=== PATIENT | female | born 1955 | race Caucasian/White ===

== ENCOUNTER 2017-07-30 14:10 | Emergency (ER) | payer OTHER, SELFPAY ==
[2017-07-30 14:12] VITALS: BP 120/70; PULSE 54; RESP 16; TEMP 36.4; O2SAT 96; BMI 21.2
--- NOTE | 2017-07-30 15:02 | ED.DCSUM_ITS ---
- ER Visit Summary Date of Service: 07/30/17 Chief Complaint: Red blood per rectum History of Present Illness: The patient is a 62 F history of IBS prior kidney stones and internal hemorrhoids. He denies being on any blood thinners. Today she had 8 or so small tablespoons of blood. She denies any clots. States it was bright red. Denies any straining at stools. Colonoscopy 1-2 years ago which was negative. Physical Examination: Well-appearing female. Vital signs are stable afebrile. No acute distress. HEENT exam unremarkable. Neck is nontender no lymphadenopathy abdomen is soft and nontender. Normal bowel sounds. No peritoneal signs. Heart regular rate and rhythm no murmurs. Lungs are clear to auscultation bilaterally. Moving all 4 extremities. No edema. Neurologically awake alert without focal deficits. Test Results: CBC normal with a H&H of 13 and 38. No old labs available for comparison. Orthostatic vital signs normal. Emergency Department Course and Treatment: Mild rectal bleeding which may be from internal hemorrhoids. CBC will be obtained and orthostatic vital signs. Treatment Plan: Repeat exam patient is doing well. The nurse present in the room external anal exam showed no hemorrhoids. Rectal exam was nontender without masses. Her stool is dark however she is taking Pepto-Bismol. Disposition: discharge Impression: Rectal bleeding of uncertain etiology This note was generated with [employer] dictation software. It may contain incorrect words, spelling, and punctuation that were not noted in review of the chart prior to signing ED Disposition - Plan for ED Patient: Chief Complaint: GI Bleed Referrals: Jose Baker MD [Primary Care Provider] -
[2017-07-30 15:10] VITALS: BP 128/70; BP 130/76; PULSE 54; PULSE 62
[2017-07-30 15:12] VITALS: BP 128/70; PULSE 55
[2017-07-30 15:18] LABS: Hematocrit 38.7 % (37-47); Hemoglobin 13.3 g/dl (12.0-15.0); Mean Corp Hgb Conc 34.4 g/gl (32-36); Mean Corpuscular Hgb 31.7 pg (27.0-32.0); Mean Corpuscular Volume 92.4 fL (81-99); Mean Platelet Vol. 10.6 fl (6.2-12.0); Platelet Count 192 K/mm3 (150-450); RBC Distribution Width SD 43.3 fl (35.1-43.9); Red Blood Count 4.19 M/mm3 (4.2-5.4); White Blood Count 5.8 K/mm3 (4.4-11.0)
[2017-07-30 15:24] LABS: Scan Indicated on CBC? Y/N NO
[2017-07-30 16:16] VITALS: BP 117/84; PULSE 55; RESP 15; O2SAT 97
--- NOTE | 2017-07-30 16:18 | ED.DEP ---
ED Disposition - Plan for ED Patient: Disposition: Home or Assisted Living Chief Complaint: GI Bleed Instructions: ED Hematochezia Stable, ED Hemorrhoids Referrals: Jose Baker MD [Primary Care Provider] - As Needed Additional Instructions: Most likely this is from internal hemorrhoids. Follow-up your primary care physician they may want to schedule for a colonoscopy. Return if bleeding is a lot worse such as clots or feel lightheaded or dizzy.
[2017-07-30 16:22] VITALS: BP 117/63; PULSE 56; RESP 17; O2SAT 98
== END 2017-07-30 16:24 | disposition home or self-care (01) ==
PROVIDERS: Emergency Provider Emergency Medicine; Family Provider Family Medicine; PCP Family Medicine
DX: K62.5 Hemorrhage of anus and rectum (principal); K58.9 Irritable bowel syndrome, unspecified; Z87.442 Personal history of urinary calculi; Z87.19 Personal history of other diseases of the digestive system
CPT/HCPCS: 85027; 99284; A4216

== ENCOUNTER → 2019-01-24 10:01 | Outpatient (CLI) | payer OTHER, SELFPAY ==
[2019-01-24 09:56] VITALS: BMI 21.2
--- NOTE | 2019-01-24 10:04 | RAD_ITS ---
STUDY: X-RAY - LEFT WRIST REASON FOR EXAM: Female, 63 years old. Follow-up fracture TECHNIQUE: 3 view(s) of the wrist were obtained. COMPARISON: No previous images or reports are available. FINDINGS: Osseous detail is partially obscured by overlying cast material. There appears to be a nondisplaced healing fracture of the distal radial metaphysis. There is degenerative arthrosis of the radiocarpal articulation. Normal distal radioulnar articulation. Normal carpal bones. Normal carpal articulations. There are degenerative changes of the first metacarpal greater multangular joint. Normal second through fifth carpometacarpal articulations. Normal visualized metacarpal bones. The soft tissue structures are unremarkable. RAD/Wrist min 3 Views IMPRESSION: Osseous detail is partially obscured by cast material. There appears to be a healing nondisplaced transverse fracture of the distal radial metaphysis. There are degenerative changes of the first metacarpal greater multangular joint. Electronically Signed: Vinicio Correia MD at 23:52 EDT , Service support ,
== END ==
PROVIDERS: Family Provider Family Medicine; PCP Family Medicine; Referring Provider Orthopaedic Surgery; Visit Provider Orthopaedic Surgery
DX: S62.102A Fracture of unspecified carpal bone, left wrist, initial encounter for closed fracture (principal)
CPT/HCPCS: 73110

== ENCOUNTER → 2019-01-27 09:36 | Outpatient (CLI) | payer OTHER, SELFPAY ==
[2019-01-24 09:56] VITALS: BMI 21.2
[2019-01-27 11:02] LABS: Amphetamine Urine VISTA NEGATIVE (<1000 ng/mL); Barbiturate Urine VISTA NEGATIVE (< 200 ng/mL); Benzodiazepine Urine VISTA NEGATIVE (< 200 ng/mL); Cocaine Urine VISTA NEGATIVE (< 300 ng/mL); Ecstacy Urine VISTA NEGATIVE (< 500 ng/mL); Methadone Urine VISTA NEGATIVE (< 300 ng/mL); PCP Urine VISTA NEGATIVE (< 25 ng/mL); THC Urine VISTA NEGATIVE (< 50 ng/mL); Vista UDS pH Range 7
== END ==
PROVIDERS: Family Provider Family Medicine; PCP Family Medicine; Referring Provider Anesthesiology Pain Medicine; Visit Provider Anesthesiology Pain Medicine
DX: F11.20 Opioid dependence, uncomplicated (principal)
CPT/HCPCS: 80307

== ENCOUNTER → 2019-01-31 10:01 | Outpatient (CLI) | payer OTHER, SELFPAY ==
[2019-01-31 08:12] VITALS: BMI 21.2
--- NOTE | 2019-01-31 10:03 | RAD_ITS ---
STUDY: X-RAY - LEFT WRIST REASON FOR EXAM: Female, 63 years old. Follow-up wrist fracture TECHNIQUE: 3 view(s) of the wrist were obtained. COMPARISON: None. FINDINGS: Imaging in casting material partially obscures bone detail. Irregularity of the dorsal aspect of the distal radius. No apparent angulation. Fracture not well defined. Distal ulna appears unremarkable. Carpal bones appear unremarkable. RAD/Wrist min 3 Views IMPRESSION: Fracture not clearly defined. Stable features of the wrist compared to imaging of January 24, 2019 Electronically Signed: Matheus Hubbard MD at 11:49 EDT Tel , Service support ,
== END ==
PROVIDERS: Family Provider Family Medicine; PCP Family Medicine; Referring Provider Orthopaedic Surgery; Visit Provider Orthopaedic Surgery
DX: S52.92XA Unspecified fracture of left forearm, initial encounter for closed fracture (principal)
CPT/HCPCS: 73110

== ENCOUNTER → 2019-02-28 09:58 | Outpatient (CLI) | payer OTHER, SELFPAY ==
[2019-02-28 07:55] VITALS: BMI 21.2
--- NOTE | 2019-02-28 09:59 | RAD_ITS ---
STUDY: X-RAY - LEFT WRIST REASON FOR EXAM: Female, 64 years old. Fracture TECHNIQUE: 3 view(s) of the wrist were obtained. COMPARISON: January 31, 2019 FINDINGS: Normal visualized distal ulna. Healing distal radial fracture with stable alignment of the bony fragment. Fracture line is only faintly visible Normal radiocarpal articulation. Normal distal radioulnar articulation. Normal carpal bones. Normal carpal articulations. Normal carpometacarpal articulation of the thumb. Normal second through fifth carpometacarpal articulations. Normal visualized metacarpal bones. The soft tissue structures are unremarkable. RAD/Wrist min 3 Views IMPRESSION: Healing distal radial fracture. Electronically Signed: Jad Low DO at 23:47 EDT Tel [phone], Service support ,
== END ==
PROVIDERS: Family Provider Family Medicine; PCP Family Medicine; Referring Provider Orthopaedic Surgery; Visit Provider Orthopaedic Surgery
DX: S52.502A Unspecified fracture of the lower end of left radius, initial encounter for closed fracture (principal); X58.XXXA Exposure to other specified factors, initial encounter
CPT/HCPCS: 73110

== ENCOUNTER → 2019-11-09 10:21 | Outpatient (CLI) | payer OTHER, SELFPAY ==
[2019-02-28 07:55] VITALS: BMI 21.2
[2019-11-09 11:29] LABS: Amphetamine Urine VISTA NEGATIVE (<1000 ng/mL); Barbiturate Urine VISTA NEGATIVE (< 200 ng/mL); Benzodiazepine Urine VISTA NEGATIVE (< 200 ng/mL); Cocaine Urine VISTA NEGATIVE (< 300 ng/mL); Ecstacy Urine VISTA POSITIVE (< 500 ng/mL); Methadone Urine VISTA NEGATIVE (< 300 ng/mL); PCP Urine VISTA NEGATIVE (< 25 ng/mL); THC Urine VISTA NEGATIVE (< 50 ng/mL); Vista UDS pH Range 7
== END ==
PROVIDERS: PCP Family Medicine; Referring Provider Anesthesiology Pain Medicine; Visit Provider Anesthesiology Pain Medicine
DX: F11.20 Opioid dependence, uncomplicated (principal)
CPT/HCPCS: 80307

== ENCOUNTER → 2022-07-22 | Outpatient (CLI) | payer MEDICARE, OTHER, SELFPAY | END | disposition home or self-care (01) | LOC: SL 20:08 | PROVIDERS: PCP Family Medicine; Referring Provider Physician Assistant; Visit Provider Physician Assistant | DX: G47.10 Hypersomnia, unspecified (principal); R06.83 Snoring; R53.83 Other fatigue | CPT/HCPCS: 95810 ==